=== PATIENT | female | born 1940 | race Hispanic/Latino ===

== ENCOUNTER → 2021-02-17 | Day surgery (SDC) | payer MEDICARE, OTHER ==
[~2021-02-17] MED LIST: ACETAMINOPHEN 1000 MG/100 ML 100 ML IV ONE; ACETAMINOPHEN/CODEINE 300MG - 30MG TAB ONE; ASPIRIN CHEW81 MG PO; ATENOLOL50 MG PO; ATORVASTATIN CA20 MG PO; ATROPINE SULFATE 1 MG/ML VIAL ONE; CLOPIDOGREL75 MG PO; DEXAMETHASONE SOD PHOS INJ 4 MG/ML VIAL ONE; EPINEPHRINE HCL 1:1000 1ML 1 MG/ML AMP ONE; FENTANYL CITRATE/PF 100MCG/2 ML INJ ONE; GLIPIZIDE ER5 MG PO; HYDRALAZINE HCL 20 MG/ML VIAL ONE; HYDROCHLOROTHIA25 MG PO; LIDOCAINE 1% W/EPINEPHRINE 20 ML VIAL ONE; LIDOCAINE HCL 2% LOCAL INJ 5 ML SDV VIAL INJ ONE; LOSARTAN-HCTZ1 EACH PO; METFORMIN HCL500 MG PO; NEOSTIGMINE 1 MG/ML 10ML VIAL ONE; NEURONTIN300 MG PO; ONDANSETRON HCL INJ 2MG/ML 2ML 2 MG/ML VIAL ONE; POVIDONE IODINE 0.05% 0.05 % ML PO ONE; PROPOFOL IV EMULSION 10 MG/ML 20 ML VIAL ONE; ROCURONIUM BROMIDE 10 MG/ML 5ML VIAL IV ONE; SEVOFLURANE INHAL SOLN 250 ML PEN BTL ONE
[2021-02-17 10:00] VITALS: BP 132/42
== END | disposition home or self-care (01) ==
LOC: OR 06:27
PROVIDERS: ATTEND Otolaryngology Otolaryngology/Facial Plastic Surgery
DX: J32.0 Chronic maxillary sinusitis (principal); J34.2 Deviated nasal septum; J34.89 Other specified disorders of nose and nasal sinuses; J30.0 Vasomotor rhinitis; I10 Essential (primary) hypertension; E11.9 Type 2 diabetes mellitus without complications; I45.10 Unspecified right bundle-branch block; Z79.02 Long term (current) use of antithrombotics/antiplatelets; Z79.82 Long term (current) use of aspirin; Z79.84 Long term (current) use of oral hypoglycemic drugs; Z95.2 Presence of prosthetic heart valve
CPT/HCPCS: 30117; 30520; 31267; 36415; 82948; 88304; J0131; J0171; J0360; J0461; J1100; J2001; J2405; J2704; J2710; J3010